=== PATIENT | male | born 1970 | race Two or more races ===

== ENCOUNTER 2018-12-09 21:26 | Inpatient (IN) | payer MEDICAID | END 2018-12-11 18:15 | disposition home or self-care (01) | LOC: OVERFLOW 12-10 06:03 → ER 21:26 → WEST WING 12-10 08:45 | DX: J18.9 Pneumonia, unspecified organism (principal); E11.65 Type 2 diabetes mellitus with hyperglycemia ==

== ENCOUNTER 2024-12-31 12:10 | Inpatient (IN) | payer MEDICAID ==
[~2024-12-31] VITALS: Ht 177.8 cm; Wt 92.0 kg
[~2024-12-31 12:10] MED LIST: METF-370 PO
[2024-12-31 12:32] LABS: Basophils # (auto) 0 10 ^3/uL (0-0.2); Basophils % (auto) 0.8 % (0.0-2.0); Eosinophils # (auto) 0.1 10 ^3/uL (0-0.8); Hemoglobin 14.2 g/dL (13.5-17.5); Lymphocytes % (auto) 31.4 % (10.0-50.0); Mean Corpuscular Hemoglobin 27.6 pg (28.0-32.0); Mean Corpuscular Hgb Conc. 33.7 g/dL (32.0-36.0); Mean Corpuscular Volume 81.8 fL (80.0-100.0); Monocytes # (auto) 0.7 10 ^3/uL (0-1.3); Monocytes % (auto) 10.3 % (0.0-12.0); Neutrophils # (auto) 3.5 10 ^3/uL (1.6-8.6); Neutrophils % (auto) 55.5 % (37.0-80.0); Nucleated Red Blood Cells % 0.2 %; Platelet Count (auto) 188 10^3/uL (140-450); Red Blood Cells 5.13 10^6/uL (4.5-5.90); Red Cell Distribution Width 14.9 % (11.8-14.3); White Blood Cell 6.3 10^3/uL (4.4-10.8)
--- NOTE | 2024-12-31 12:32 | ED.PDOC ---
HPI Comments HPI: 54-year-old male presents to the emergency department with a chief complaint of chest pain onset 1 day. Patient states he has been experiencing LT sided chest pain, radiates to RT side chest, described as an inflamed sensation, rates pain 9/10, is also experiencing shortness of breath. Patient took Nitro, had temporary relief of symptoms. He had coronary stents placed August 2024. Denies nausea, vomiting, diarrhea, headache, blurry vision, numbness/tingling. No other symptoms or modifying factors present at this time. Initial Vitals BP: 140/83 HR: 79 RR: 20 O2 Sat: 98% Past Medical history: DM, Past Surgical history: Coronary stent Medications: Metformin, Lopressor, Dexlansoprazole, Brilinta, Gabapentin, Gli pizide, Rosuvastatin, ASA, Metoprolol, Nitro, Lisinopril Social History: ETOH occasionally Allergies: NKDA HPI: Poor Historian. REVIEW OF SYSTEMS: CONSTITUTIONAL: Denies acute: fever, diaphoresis, chills, generalized weakness. HEAD: Denies acute: headache, photophobia Eyes: Denies acute: Double vision, vision loss, eye pain, eye discharge. EARS: Denies acute: tinnitus, hearing loss, ear discharge, ear pain, THROAT: Denies acute: sore throat, swelling, difficulty swallowing , pain with swallowing, change in voice. NECK: Denies acute: neck pain, neck swelling, stiff neck. HEART: Denies acute : palpitations, LUNGS: Denies acute: wheezing, cough, hemoptysis ABDOMEN: Denies acute: abdominal pain, Nausea, Vomiting, diarrhea, melena , hematemesis, hematochezia SKIN: Denies acute: rash, redness, lesions, itchiness. EXTREMITIES: Denies acute: calf pain, numbness, tingling, weakness, denies pain in extremity. Denies acute: Low back pain. Neuro: Denies acute: focal neurological deficit, motor or sensory focal neurological deficit, tremors, seizure like activity, confusion, dizziness, change in mental status, loss of bowel or bladder function, cauda equina like symptoms. : Denies acute: dysuria, hematuria, flank pain, increase in urinary frequency. PSYCH: Denies acute: hallucination, suicidal ideation, homicidal ideation. PHYSICAL EXAM: General: ----mild----acute distress, awake and alert. Head: normocephalic, atraumatic. Neck: supple, trachea is midline, no swelling. Throat: Normal phonation. Eyes:, no erythema, no purulent discharge, no proptosis, no icterus. Heart: regular rate, regular rhythm, no significant murmur appreciated. Lungs: no apparent respiratory distress, Able to speak in full sentences. No wheezing, no rhonchi, no crackles. No stridors Clear to auscultation bilaterally. Abdomen: non tender to palpation, non distended, soft, no guarding, no rebound, + bowel sounds. Neuro: Awake, Alert, oriented to name, self, situation, follows commands GCS=15. Speech is normal. Skin: no petechia, no purpura, no cyanosis, non-pale, not jaundice. Lower extremities: --no - Pitting edema no deformity, no focal swelling, no calf TTP. Makes eye contact. moves all four extremities. Face: no apparent facial droop. Ambulating in the ED independently. ED COURSE: DISCLAIMER: This medical document was created using an electronic medical record system with voice recognition software and computerized dictation system. Although this document has been carefully reviewed, there might still be some phonetic and typographical errors. Occasional wrong-word or "sound-alike" substitutions may have occurred due to the inherent limitations of voice recognition software. These areas are purely typographical due to imperfections of the software programs and do not reflect any compromise in the patient's medical care. Please read the chart carefully and recognize, using context, where these substitutions have occurred. Chief Complaint: Chest Pain Time Seen by MD: 12:20 Reviewed Notes: Medications, Allergies Allergies: Coded Allergies: NO KNOWN ALLERGIES (Unverified , 12/09/18) Home Meds Reported Medications Metformin Hydrochloride (Metformin Hcl) 500 Mg Tab, 500 MG PO DAILY for 30 Days, MG 12/10/18 Information Source: Patient Mode of Arrival: Ambulatory Severity: Moderate Timing: Days Duration: Since onset Prehospital treatment: Other (Nitro) Location: Chest (L) Radiation: No Radiation Quality: Other (inflammed) Onset: At Rest Cardiac Risk Factors: Diabetes Modifying Factors: Nothing Associated Signs and Symptoms: SOB Past Medical History PAST MEDICAL HISTORY: DM Surgical History: Denies all surgeries Surgical History (Other): coronary stents 08/2024 Family History Family History: Unknown Social History Smoker: Non-Smoker Alcohol: Occasionally Drugs: Denies Drug Use Lives In: Home Was a procedure done? Was a procedure done?: No CP Differential Dx Differential Diagnosis: N/A Differential Diagnosis: Other (Ddx include but not limitied to gastritis, musculoskeletal pain, radiculopathy, atypical chest pain, dissection, aneurysm, ACS, unstable angina, hiatal hernia, GERD, anxiety, costochondritis, PE, pneumothroax, neoplasm, cardiac ischemia, drug abuse, anemia.) X-Ray, Labs, Meds, VS Vital Signs Date Time Temp Pulse Resp B/P (MAP) Pulse Ox O2 Delivery O2 Flow Rate FiO2 12/31/24 19:30 97.5 75 20 147/94 (111) 98 97.5 12/31/24 17:17 97.4 75 18 142/93 (109) 98 97.4 12/31/24 16:09 88 19 97 Room Air* 0 21 12/31/24 14:13 88 19 114/76 (89) 97 12/31/24 13:54 80 17 125/77 (93) 96 12/31/24 13:48 82 17 124/78 (93) 99 12/31/24 13:46 124/78 12/31/24 13:27 120/73 12/31/24 13:13 73 12/31/24 12:56 84 18 98 Room Air 12/31/24 12:56 98.7 84 18 120/73 (89) 98 98.7 12/31/24 12:20 78 12/31/24 12:15 98.0 79 20 140/83 (102) 98 98.0 Lab Test 12/31/24 14:59 12/31/24 13:20 12/31/24 12:17 Range/Units Troponin I High Sensitivity 3 L < 3 L < 3 L </=54 ng/L White Blood Count 6.3 4.4-10.8 10^3/uL Red Blood Count 5.13 4.5-5.90 10^6/uL Hemoglobin 14.2 13.5-17.5 g/dL Hematocrit 42.0 41.0-53.0 % Mean Corpuscular Volume 81.8 80.0-100.0 fL Mean Corpuscular Hemoglobin 27.6 L 28.0-32.0 pg Mean Corpuscular Hemoglobin Concent 33.7 32.0-36.0 g/dL Red Cell Distribution Width 14.9 H 11.8-14.3 % Platelet Count 188 140-450 10^3/uL Mean Platelet Volume 7.1 6.9-10.8 fL Neutrophils (%) (Auto) 55.5 37.0-80.0 % Lymphocytes (%) (Auto) 31.4 10.0-50.0 % Monocytes (%) (Auto) 10.3 0.0-12.0 % Eosinophils (%) (Auto) 2.0 0.0-7.0 % Basophils (%) (Auto) 0.8 0.0-2.0 % Neutrophils # (Auto) 3.5 1.6-8.6 10 ^3/uL Lymphocytes # (Auto) 2.0 0.4-5.4 10 ^3/uL Monocytes # (Auto) 0.7 0-1.3 10 ^3/uL Eosinophils # (Auto) 0.1 0-0.8 10 ^3/uL Basophils # (Auto) 0 0-0.2 10 ^3/uL Nucleated Red Blood Cells 0.2 % Sodium Level 142 136-145 mmol/L Potassium Level 4.3 3.5-5.1 mmol/L Chloride Level 111 H 98-107 mmol/L Carbon Dioxide Level 20 20-31 mmol/L Anion Gap 11 5-15 Blood Urea Nitrogen 12 9-23 mg/dL Creatinine 0.83 0.700-1.30 mg/dL Glomerular Filtration Rate Calc 104 >90 mL/min BUN/Creatinine Ratio 14.5 10.0-20.0 Serum Glucose 143 H 74-106 mg/dL Calcium Level 10.1 8.7-10.4 mg/dL Total Bilirubin 0.4 0.2-1.0 mg/dL Aspartate Amino Transferase (AST) 11 <34 U/L Alanine Aminotransferase (ALT) 14 7-40 U/L Alkaline Phosphatase 62 46-116 U/L B-Type Natriuretic Peptide 44.60 0-100 pg/mL Total Protein 6.8 5.7-8.2 g/dL Albumin 4.2 3.2-4.8 g/dL Current Medications Medications (Trade) Dose Ordered Sig/Shad Route Start Time Stop Time Status Last Admin Aspirin (Ecotrin Enteric Coated Tablet) 325 mg ONCE ONCE PO 12/31/24 12:30 12/31/24 12:31 DC 12/31/24 13:26 Nitroglycerin (Ntrostat Sublingual) 0.4 mg ONCE ONCE SL 12/31/24 12:30 12/31/24 12:31 DC 12/31/24 13:27 [place] [id number] Ph: [phone] DIAGNOSTIC IMAGING Diagnostic Imaging Report : [id number] Signed PATIENT: LORE ZHANG ACCT: [id number] UNIT: [id number] : 1970 LOC: ER ROOM / BED: / AGE / SEX: 54 / M ADM STATUS: REG ER SERVICE 1216 ORDERING PHYSICIAN: JOCELIN COSBY DO PROCEDURE(s): CXRP - CHEST PORTABLE REASON: cp/sob ORDER NUMBER(s): [id number], ACCESSION NUMBER(s): [id number] CHEST RADIOGRAPH Indication: cp/sob Technique: Single frontal view of the chest was obtained Comparison: None FINDINGS: Lines and Tubes: None Lungs: No focal consolidation. Pleura: No effusion. No pneumothorax. Cardiomediastinal contours: Unremarkable Bones: No acute osseous abnormality. IMPRESSION: No acute cardiopulmonary disease. ATED BY: BÁRBARA DUBON DO DICTATED DATE/TIME: 12/31/241313 SIGNED BY: BÁRBARA DUBON DO SIGNED DATE/TIME: 12/31/244 CC: Time of 1ST Reevaluation: 12:50 Reevaluation 1ST: Unchanged Patient Education/Counseling: Diagnosis, Treatment Family Education/Counseling: No Family Present Comments Patient presented with the above HPI.-cardiac-----workup was initiated. patient was found with the above mentioned diagnosis. the following medications were ordered: please refer to order lists of meds and tests obtained by myself Dr. Cosby. Patient ED course and VS have been stabilized. Patient has been reassessed in the ED and remained in a stable condition. Pertinent incidental findings were discussed with the patient and/or family. Patient/family voices understanding and is agreeable with plan. Patient has been observed in the ED adequate length of time to insure improvement/stability. Escalation of care considered: Consideration of escalation to observation or admission Patient was ADMITTED to the medicine team for further evaluation and treatment of their presentation. All the reports of any imaging studies that were ordered by myself were reviewed by myself. Departure 1 Departure Time of Disposition: 16:00 Impression: Primary Impression: Chest pain Disposition: ADMITTED INPATIENT Admit to: Tele Condition: Guarded Discharged With: Self Critical Care Note Critical Care Time?: No Heart Score Heart Score: Heart Score Response (Comments) Value History Moderate Suspicious 1 EKG Normal 0 Age 45-64 1 Risk Factors >3 or Hx ASHD 2 Troponin Normal limit 0 Total 4 I personally scribed for JOCELIN COSBY DO ([email or web address]) on 12/31/24 at 12:32. Electronically submitted by Sheba Garcia ([email or web address]). I personally scribed for JOCELIN COSBY DO ([email or web address]) on 12/31/24 at 13:30. Electronically submitted by Sheba Garcia ([email or web address]). JOCELIN COSBY DO Dec 31, 2024 12:32
[2024-12-31 12:51] LABS: Alanine Aminotransferase 14 U/L (7-40); Albumin 4.2 g/dL (3.2-4.8); Alkaline Phosphatase 62 U/L (46-116); Anion Gap 11 (5-15); Aspartate Aminotransferase 11 U/L (<34); BUN/Creatinine Ratio 14.5 (10.0-20.0); Bilirubin, Total 0.4 mg/dL (0.2-1.0); Blood Urea Nitrogen 12 mg/dL (9-23); Calcium 10.1 mg/dL (8.7-10.4); Carbon Dioxide 20 mmol/L (20-31); Chloride 111 mmol/L (98-107); Glucose 143 mg/dL (74-106); Potassium 4.3 mmol/L (3.5-5.1); Sodium 142 mmol/L (136-145); Total Protein 6.8 g/dL (5.7-8.2)
--- NOTE | 2024-12-31 13:17 | DVH ---
CHEST RADIOGRAPH Indication: cp/sob Technique: Single frontal view of the chest was obtained Comparison: None FINDINGS: Lines and Tubes: None Lungs: No focal consolidation. Pleura: No effusion. No pneumothorax. Cardiomediastinal contours: Unremarkable Bones: No acute osseous abnormality. IMPRESSION: No acute cardiopulmonary disease.
[2024-12-31] MEDS: ASPirin-EC 325mg tab PO ONE (13:26)
[2024-12-31] MEDS: NITROGLYCERIN 0.4 MG SL TAB SL ONE (13:27)
[2024-12-31 16:09] VITALS: PULSE 88; RESP 19; O2SAT 97
--- NOTE | 2024-12-31 19:17 | ECG ---
[facility] Test Date: 2024-12-31 Test Time: 13:13:15 Pat Name: LORE ZHANG Department: ED Room: Gender: M Assurance Manager: driss : 1970 Requested By: JOCELIN COSBY Order Number: [id number] Reading MD: Homero Greer Measurements Intervals [place] Rate: 73 P: 69 MN: 146 QRS: 48 QRSD: 85 T: 71 QT: 386 QTc: 426 Interpretive Statements Sinus rhythm RSR' in V1 or V2, probably normal variant ST elev, probable normal early repol pattern Electronically Signed On 12-31-2024 21:19:56 PDT by Homero Greer Please click the below link to view image of tracing.
[2024-12-31] MEDS ORDERED: HYDROcodone-ACET 5/325MG TAB PO PRN (21:30)
[2024-12-31] MEDS ORDERED: ONDANSETRON HCL 4 MG/2 ML VIAL IV PRN (21:30)
[2024-12-31] MEDS ORDERED: ACETAMINOPHEN 325 MG TAB PO PRN (21:30)
[2024-12-31] MEDS ORDERED: DOCUSATE SOD 100 MG CAP PO PRN (21:30)
[2024-12-31] MEDS ORDERED: DEXTROSE (50%) 50ML SYRG IV PRN (21:30)
[2024-12-31] MEDS: ATORVASTATIN 20 MG TAB PO SCH (22:40)
[2024-12-31] MEDS: SODIUM CHLOR 0.9% PF (SALINE LOCK) 10ML VIAL/SYR IV SCH (22:40)
[2024-12-31] MEDS: GABAPENTIN 100 MG CAP PO SCH (22:40)
[2024-12-31] MEDS: METOPROLOL TARTRATE 25 MG TAB PO SCH (22:40)
[2024-12-31] MEDS: ACCU-CHEK COMFORT CURVE STRIP VI SCH (22:41)
[2024-12-31] MEDS: InsuLIN REG 1unit/0.01ml Soln (100units/ml) SC SCH (22:52)
--- NOTE | 2024-12-31 23:24 | DVHHP2 ---
History of Present Illness Reason for Visit: Acute chest pain History of Present Illness The patient is a 54-year-old male with past medical history of diabetes mellitus, hyperlipidemia, and hypertension who presented to [facility] ED with complaint of chest pain for the past 1 day. Patient reports symptoms progressively get worse with left-sided chest pain, radiating to the right side of the chest, described as inflamed sensation, rating 9/10 numeric scale, associated shortness of breaths, getting worse today that prompted this visit. Patient was seen and evaluated in the ED, laboratory data shows WBC 6.3, platelets 188, sodium 142, potassium 4.3, BUN 12, creatinine 0.83, glucose 143, troponin 3, BNP 44.60, blood pressure 147/94, heart rate 75, temperature 97.6 F, O2 saturation 98% on room air. Chest x-ray show no acute cardiopulmonary disease. Please see medication orders section in the computer. On my assessment, patient denied chest pain at this moment, no headache, no dizziness, no diaphoresis, no shortness of breaths, no nausea, no vomiting, no fever, no chill s. Patient was admitted for further evaluation and medical management. Past Medical History DM, HLD, Hypertension Past Surgical History Coronary stent Family History Reviewed, noncontributory to the management of this case. Past Social History The patient lives at home, denies smoking, alcohol or illicit drugs abuse. Review of Systems Constitutional: Yes: Weakness; No: Fever, Chills, Sweats, Malaise, Other Eyes: No: Pain, Vision change, Conjunctivae inflammation, Eyelid inflammation, Other, Redness ENT: No: Ear pain, Ear discharge, Nose pain, Nose discharge, Nose congestion, Mouth pain, Mouth swelling, Throat pain, Throat swelling, Other Respiratory: Shortness of breath; No: Cough, Dry, SOB with excertion, Wheezing, Hemoptysis, Pleuritic Pain, Sputum, Wheezing, Other Cardiovascular: Chest Pain; No: Palpitations, Orthopnea, Paroxysmal Noc. Dyspnea, Edema, Lt Headedness, Other Gastrointestinal: No: Nausea, Vomiting, Abdominal Pain, Diarrhea, Constipation, Melena, Hematochezia, Other Genitourinary: No Dysuria, No Frequency, No Incontinence, No Hematuria, No Retention, No Other Musculoskeletal: No: other, neck pain, shoulder pain, arm pain, back pain, hand pain, leg pain, foot pain Skin: No: Rash, Lesions, Jaundice, Bruising, Other Neurological: No: Weakness, Numbness, Incoordination, Change in speech, Co nfusion, Seizures, Other Allergies: Coded Allergies: NO KNOWN ALLERGIES (Unverified , 12/09/18) Medications Current Medications Medications Dose Ordered Sig/Shad Route Start Time Stop Time Status Last Admin Dose Admin Aspirin 81 mg DAILY PO 01/01/25 10:00 Atorvastatin Calcium 20 mg HS PO 12/31/24 22:00 12/31/24 22:40 20 MG Gabapentin 100 mg BID PO 12/31/24 22:00 12/31/24 22:40 100 MG Metoprolol Tartrate 25 mg BID PO 12/31/24 22:00 12/31/24 22:40 25 MG Hydralazine HCl 10 mg Q6HP PRN IV 12/31/24 21:30 Diagnostic Test (Pha) 1 strip ACHS 12/31/24 22:00 12/31/24 22:41 1 STRIP Insulin Human Regular ACHS SC 12/31/24 22:00 12/31/24 22:52 3 UNITS Dextrose 50 ml UD PRN IV 12/31/24 21:30 Sodium Chloride 10 ml Q8HR IV 12/31/24 22:00 12/31/24 22:40 10 ML Acetaminophen/ Hydrocodone Bitart 1 tab Q4HP PRN PO 12/31/24 21:30 Ondansetron HCl 4 mg Q4HP PRN IV 12/31/24 21:30 Docusate Sodium 100 mg BIDPRN PRN PO 12/31/24 21:30 Acetaminophen 650 mg Q6HP PRN PO 12/31/24 21:30 Exam Vital Signs Vital Signs Date Time Temp Pulse Resp B/P (MAP) Pulse Ox O2 Delivery O2 Flow Rate FiO2 12/31/24 22:40 83 149/87 12/31/24 22:30 97.5 18 99 97.5 12/31/24 16:09 Room Air* 0 21 General Appearance: Alert, Oriented X3, Cooperative, No acute distress HEENT: Atraumatic, PERRLA, EOMI, Mucous membr. moist/pink Respiratory: Clear to auscultation, Normal air movement Cardiovascular: Regular rate, Normal S1, Normal S2, No murmurs Abdominal: Normal bowel sounds, Soft, No tenderness, No hepatospenomegaly, No masses Extremities: No clubbing, No cyanosis, No edema, Normal pulses, No tenderness/swelling Skin: No rashes, No breakdown, No significant lesion Neuro: Normal gait, Normal speech, Strength at 5/5 X4 ext, Normal tone, Sensation intact, Cranial nerves 3-12 NL, Reflexes 2+ Psych/Mental Status: Mental status NL, Mood NL Labs/Xrays Labs Test 12/31/24 14:59 12/31/24 12:17 Range/Units Troponin I High Sensitivity 3 L </=54 ng/L White Blood Count 6.3 4.4-10.8 10^3/uL Red Blood Count 5.13 4.5-5.90 10^6/uL Hemoglobin 14.2 13.5-17.5 g/dL Hematocrit 42.0 41.0-53.0 % Mean Corpuscular Volume 81.8 80.0-100.0 fL Mean Corpuscular Hemoglobin 27.6 L 28.0-32.0 pg Mean Corpuscular Hemoglobin Concent 33.7 32.0-36.0 g/dL Red Cell Distribution Width 14.9 H 11.8-14.3 % Platelet Count 188 140-450 10^3/uL Mean Platelet Volume 7.1 6.9-10.8 fL Neutrophils (%) (Auto) 55.5 37.0-80.0 % Lymphocytes (%) (Auto) 31.4 10.0-50.0 % Monocytes (%) (Auto) 10.3 0.0-12.0 % Eosinophils (%) (Auto) 2.0 0.0-7.0 % Basophils (%) (Auto) 0.8 0.0-2.0 % Neutrophils # (Auto) 3.5 1.6-8.6 10 ^3/uL Lymphocytes # (Auto) 2.0 0.4-5.4 10 ^3/uL Monocytes # (Auto) 0.7 0-1.3 10 ^3/uL Eosinophils # (Auto) 0.1 0-0.8 10 ^3/uL Basophils # (Auto) 0 0-0.2 10 ^3/uL Nucleated Red Blood Cells 0.2 % Sodium Level 142 136-145 mmol/L Potassium Level 4.3 3.5-5.1 mmol/L Chloride Level 111 H 98-107 mmol/L Carbon Dioxide Level 20 20-31 mmol/L Anion Gap 11 5-15 Blood Urea Nitrogen 12 9-23 mg/dL Creatinine 0.83 0.700-1.30 mg/dL Glomerular Filtration Rate Calc 104 >90 mL/min BUN/Creatinine Ratio 14.5 10.0-20.0 Serum Glucose 143 H 74-106 mg/dL Calcium Level 10.1 8.7-10.4 mg/dL Total Bilirubin 0.4 0.2-1.0 mg/dL Aspartate Amino Transferase (AST) 11 <34 U/L Alanine Aminotransferase (ALT) 14 7-40 U/L Alkaline Phosphatase 62 46-116 U/L B-Type Natriuretic Peptide 44.60 0-100 pg/mL Total Protein 6.8 5.7-8.2 g/dL Albumin 4.2 3.2-4.8 g/dL PATIENT: LORE ZHANG ACCT: [id number] UNIT: [id number] : 1970 LOC: ER ROOM / BED: / AGE / SEX: 54 / M ADM STATUS: REG ER SERVICE 1216 ORDERING PHYSICIAN: JOCELIN COSBY DO PROCEDURE(s): CXRP - CHEST PORTABLE REASON: cp/sob ORDER NUMBER(s): [id number], ACCESSION NUMBER(s): [id number] CHEST RADIOGRAPH Indication: cp/sob Technique: Single frontal view of the chest was obtained Comparison: None FINDINGS: Lines and Tubes: None Lungs: No focal consolidation. Pleura: No effusion. No pneumothorax. Cardiomediastinal contours: Unremarkable Bones: No acute osseous abnormality. IMPRESSION: No acute cardiopulmonary disease. Assessment/Plan Assessment/Plan Acute chest pain Hypertension Diabetes mellitus with hyperglycemia Plan 1. Admit to telemetry unit 2. Breathing treatment 3. Pain control management 4. Management of fluids and electrolytes 5. Consultation for hospitalist 6. Diagnostic tests chest x-ray 7. DVT prophylaxis-on aspirin 8. Repeat labs CBC, CMP in a.m. 9. Continue with current medical management 10. Treatment plan discussed with patient and RN. Patient verbalized understanding. Plan discussed with: Patient, Other (RN) My Orders Orders - LORI COLEMAN DNP Procedure Category Date Status Time Aspirin Tablet PHA 01/01/25 In Process 10:00 Atorvastatin (Lipitor) PHA 12/31/24 In Process 22:00 Gabapentin Capsule PHA 12/31/24 In Process (Neurontin Capsule) 22:00 Metoprolol Tartrate PHA 12/31/24 In Process Tablet (Lopressor Ta 22:00 Hydralazine Injection PHA 12/31/24 In Process (Apresoline Inject 21:30 Consistent DIET 01/01/25 Transmitted Carb(Ccho)Diabetes Breakfast Glucose Blood PHA 12/31/24 In Process (Accu-Chek Comfort 22:00 Insulin R (Human) PHA 12/31/24 In Process (Insulin R) 22:00 Dextrose 50% Syringe PHA 12/31/24 In Process 21:30 Allergies NOEMI 12/31/24 In Process 21:22 Code Status CODE 12/31/24 Transmitted 21:22 Sodium Chloride Lock PHA 12/31/24 In Process (Saline Lock Ns) 22:00 Oxygen Per Hour RT 12/31/24 Transmitted 21:22 Hydrocodone-Acet PHA 12/31/24 In Process 5/325mg Tab ([place] 21:30 Ondansetron Hcl PHA 12/31/24 In Process (Zofran) 21:30 Docusate Sodium PHA 12/31/24 In Process Capsule (Colace 21:30 Complete Blood Count LAB 01/01/25 Verified 04:00 Comprehensive LAB 01/01/25 Verified Metabolic Panel 04:00 Condition: Serious NOEMI 12/31/24 In Process 21:22 Acetaminophen Tablet PHA 12/31/24 In Process (Tylenol Tablet) 21:30 Bedrest With Bathroom NOEMI 12/31/24 In Process Privileg 21:22 Sequential NOEMI 12/31/24 In Process Compression Device Problem List: (1) Acute chest pain (2) Hypertension (3) Diabetes mellitus with hyperglycemia Date of Service: Dec 31, 2024 Billing Provider: LORI COLEMAN DNP Common Visit Codes: [id number] INP/OBS CARE (HIGH) LORI COLEMAN DNP Dec 31, 2024 23:24
[2024-12-31] MEDS ORDERED: MORPHINE SULFATE INJ 2 MG/ml SYRG IV PRN (23:30)
[2024-12-31] MEDS ORDERED: NITROGLYCERIN 0.4 MG SL TAB SL PRN (23:30)
[2025-01-01] VITALS (8 sets, daily range): BP systolic 119–148; BP diastolic 74–94; PULSE 65–73; RESP 15–18; TEMP 97.6–98.2; O2SAT 95–97
[2025-01-01 07:30] LABS: Basophils # (auto) 0 10 ^3/uL (0-0.2); Basophils % (auto) 0.6 % (0.0-2.0); Eosinophils # (auto) 0.2 10 ^3/uL (0-0.8); Eosinophils % (auto) 3.2 % (0.0-7.0); Hematocrit 40.3 % (41.0-53.0); Lymphocytes # (auto) 2.1 10 ^3/uL (0.4-5.4); Lymphocytes % (auto) 31.9 % (10.0-50.0); Mean Corpuscular Hgb Conc. 34.6 g/dL (32.0-36.0); Mean Corpuscular Volume 80.8 fL (80.0-100.0); Monocytes # (auto) 0.7 10 ^3/uL (0-1.3); Neutrophils # (auto) 3.5 10 ^3/uL (1.6-8.6); Neutrophils % (auto) 53.3 % (37.0-80.0); Nucleated Red Blood Cells % 0.1 %; Platelet Count (auto) 179 10^3/uL (140-450); Red Blood Cells 4.99 10^6/uL (4.5-5.90); Red Cell Distribution Width 14.9 % (11.8-14.3); White Blood Cell 6.5 10^3/uL (4.4-10.8)
[2025-01-01 07:37] LABS: Alanine Aminotransferase 13 U/L (7-40); Alkaline Phosphatase 59 U/L (46-116); Anion Gap 10 (5-15); Aspartate Aminotransferase 13 U/L (<34); BUN/Creatinine Ratio 14.6 (10.0-20.0); Blood Urea Nitrogen 12 mg/dL (9-23); Calcium 9.7 mg/dL (8.7-10.4); Carbon Dioxide 22 mmol/L (20-31); Potassium 4.1 mmol/L (3.5-5.1); Sodium 142 mmol/L (136-145); Total Protein 6.4 g/dL (5.7-8.2)
[2025-01-01 07:38] LABS: Albumin 3.9 g/dL (3.2-4.8); Bilirubin, Total 0.6 mg/dL (0.2-1.0)
[2025-01-01 07:51] LABS: Chloride 110 mmol/L (98-107); Glucose 111 mg/dL (74-106)
[2025-01-01] MEDS: ASPirin 81 mg TAB PO SCH (09:23)
[2025-01-01] MEDS ORDERED: TICA90TA PO (17:52)
[2025-01-01] MEDS: SODIUM CHLORIDE 0.9% 1,000 ML IV SCH (18:00)
--- NOTE | 2025-01-01 18:02 | DVHINCON2 ---
Date Seen: Jan 01, [address] Wylie Reason for Consultation Chest pain History of Present Illness The patient is a 54-year-old male with a significant history of coronary artery disease, status post placement of a total of seven coronary stents, two placed by Dr. Jed Keller and five placed in August 2024, who presents to the emergency department with complaint of chest pain ongoing for the past day. He reports that the chest pain has persisted despite of being compliant with his prescribed med the regimen, which includes dual antiplatelet therapy and statin therapy. He denies associated symptoms such as shortness of breath, palpitations, syncope, nausea, or vomiting. Given his high-risk cardiac history, he was evaluated with serial troponins which returned negative. A 12 lead ECG showed sinus rhythm with nonspecific ST elevations, likely representing early repolarization. Chest x-ray was unremarkable showing no acute cardiorenal pulmonary process. Past Medical History As stated in hpi Past Surgical History PTCA Family History: Diabetes mellitus G8 MOTHER G8 FATHER Family History Reviewed, non-contributory to the management of this case. Social History The patient lives at home, denies smoking, alcohol or illicit drugs abuse. Allergies: Coded Allergies: NO KNOWN ALLERGIES (Unverified , 12/09/18) Home Meds Reported Medications Ticagrelor Base (BRILINTA) 90 Mg Tab, 1 TAB PO BID 01/01/25 Metformin Hydrochloride (Metformin Hcl) 500 Mg Tab, 500 MG PO DAILY for 30 Days, MG 12/10/18 Current Medications Current Medications Medications (Trade) Dose Ordered Sig/Shad Route PRN Reason Start Time Stop Time Status Last Admin Aspirin 81 mg DAILY PO 01/01/25 10:00 01/01/25 09:23 Atorvastatin Calcium (Lipitor) 20 mg HS PO 12/31/24 22:00 12/31/24 22:40 Gabapentin (Neurontin Capsule) 100 mg BID PO 12/31/24 22:00 01/01/25 09:22 Metoprolol Tartrate (Lopressor Tablet) 25 mg BID PO 12/31/24 22:00 01/01/25 09:23 Hydralazine HCl (Apresoline Injection) 10 mg Q6HP PRN IV SBP>150 12/31/24 21:30 Diagnostic Test (Pha) (Accu-Chek Comfort Curve T) 1 strip ACHS 12/31/24 22:00 01/01/25 16:24 Insulin Human Regular (InsuLIN R) ACHS SC 12/31/24 22:00 01/01/25 11:57 Dextrose 50 ml UD PRN IV Blood Sugar LESS THAN 60 12/31/24 21:30 Sodium Chloride (Saline Lock Ns) 10 ml Q8HR IV 12/31/24 22:00 01/01/25 13:21 Acetaminophen/ Hydrocodone Bitart ([place] 5/325MG Tab) 1 tab Q4HP PRN PO MODERATE PAIN (4-6 PAIN SCALE) 12/31/24 21:30 Ondansetron HCl (Zofran) 4 mg Q4HP PRN IV NAUSEA / VOMITING 12/31/24 21:30 Docusate Sodium (Colace Capsule) 100 mg BIDPRN PRN PO FOR CONSTIPATION 12/31/24 21:30 Acetaminophen (Tylenol Tablet) 650 mg Q6HP PRN PO PAIN SCALE 1-3 OR TEMP>100.4 12/31/24 21:30 Nitroglycerin (Ntrostat Sublingual) 0.4 mg Q5MINP PRN SL FOR CHEST PAIN 12/31/24 23:30 Morphine Sulfate 2 mg Q30M PRN IV FOR CHEST PAIN 12/31/24 23:30 Review of Systems Constitutional: No symptom reported Ears, Nose, & Throat: No symptom reported Eyes: No symptom reported Neurological: No symptoms reported Pulmonary/Respiratory: No symptom reported Cardiovascular: Positive for chest pain, denies palpitation, syncope Gastrointestinal: No symptom reported Genitourinary: No symptom reported Musculoskeletal: No symptom reported Skin: No symptom reported Psychiatric: No symptom reported Endocrine: No symptom reported Hemotologic/Lymphatic: No symptom reported Vital Signs Vital Signs Date Time Temp Pulse Resp B/P (MAP) Pulse Ox O2 Delivery O2 Flow Rate FiO2 01/01/25 17:19 98.0 65 17 148/94 (112) 96 98.0 01/01/25 01:30 Room Air* 0 21 Physical Exam INITIAL VITAL SIGNS: Reviewed by me GENERAL: Alert and interactive. No acute distress. HEAD: Head is normocephalic and atraumatic. EYES: EOMI, PERRL. No scleral icterus. No conjunctival injection. ENT: Moist mucous membranes. NECK: Supple, No masses, Full range of motion. RESPIRATORY: No tachypnea. Clear breath sounds bilaterally. No wheezing, ral es, rhonchi. CV: Regular rate and rhythm. No murmurs, rubs, or gallops. GI/: Active bowel sounds, soft, nondistended, nontender. No guarding. No rebound. No masses. No CVA tenderness. INTEGUMENTARY: Warm and dry. No obvious rashes. NEUROLOGIC: Alert and oriented. Face is symmetric. Speech is normal. Moves all extremities equally. Labs/Diagnostic Data Labs Test 01/01/25 16:06 01/01/25 06:52 12/31/24 14:59 12/31/24 12:17 Range/Units POC Glucose 165 H 70-106 mg/dl White Blood Count 6.5 4.4-10.8 10^3/uL Red Blood Count 4.99 4.5-5.90 10^6/uL Hemoglobin 14.0 13.5-17.5 g/dL Hematocrit 40.3 L 41.0-53.0 % Mean Corpuscular Volume 80.8 80.0-100.0 fL Mean Corpuscular Hemoglobin 28.0 28.0-32.0 pg Mean Corpuscular Hemoglobin Concent 34.6 32.0-36.0 g/dL Red Cell Distribution Width 14.9 H 11.8-14.3 % Platelet Count 179 140-450 10^3/uL Mean Platelet Volume 7.3 6.9-10.8 fL Neutrophils (%) (Auto) 53.3 37.0-80.0 % Lymphocytes (%) (Auto) 31.9 10.0-50.0 % Monocytes (%) (Auto) 11.0 0.0-12.0 % Eosinophils (%) (Auto) 3.2 0.0-7.0 % Basophils (%) (Auto) 0.6 0.0-2.0 % Neutrophils # (Auto) 3.5 1.6-8.6 10 ^3/uL Lymphocytes # (Auto) 2.1 0.4-5.4 10 ^3/uL Monocytes # (Auto) 0.7 0-1.3 10 ^3/uL Eosinophils # (Auto) 0.2 0-0.8 10 ^3/uL Basophils # (Auto) 0 0-0.2 10 ^3/uL Nucleated Red Blood Cells 0.1 % Sodium Level 142 136-145 mmol/L Potassium Level 4.1 3.5-5.1 mmol/L Chloride Level 110 H 98-107 mmol/L Carbon Dioxide Level 22 20-31 mmol/L Anion Gap 10 5-15 Blood Urea Nitrogen 12 9-23 mg/dL Creatinine 0.82 0.700-1.30 mg/dL Glomerular Filtration Rate Calc 104 >90 mL/min BUN/Creatinine Ratio 14.6 10.0-20.0 Serum Glucose 111 H 74-106 mg/dL Calcium Level 9.7 8.7-10.4 mg/dL Total Bilirubin 0.6 0.2-1.0 mg/dL Aspartate Amino Transferase (AST) 13 <34 U/L Alanine Aminotransferase (ALT) 13 7-40 U/L Alkaline Phosphatase 59 46-116 U/L Total Protein 6.4 5.7-8.2 g/dL Albumin 3.9 3.2-4.8 g/dL Troponin I High Sensitivity 3 L </=54 ng/L B-Type Natriuretic Peptide 44.60 0-100 pg/mL PROCEDURE(s): CXRP - CHEST PORTABLE REASON: cp/sob ORDER NUMBER(s): [id number], ACCESSION NUMBER(s): [id number] CHEST RADIOGRAPH Indication: cp/sob Technique: Single frontal view of the chest was obtained Comparison: None FINDINGS: Lines and Tubes: None Lungs: No focal consolidation. Pleura: No effusion. No pneumothorax. Cardiomediastinal contours: Unremarkable Bones: No acute osseous abnormality. IMPRESSION: No acute cardiopulmonary disease. Assessment Acute chest pain Rule out progressive CAD s/p PTCA x 7 stents Diabetes type 2 Plan/Recommendation (Dr. Keller ): Given the patient's extensive cardiac history and persistent chest pain despite medical therapy, he is scheduled to undergo a left heart catheterization on Friday, 2024, for further evaluation. The procedure, including its purpose and potential risk was discussed in detail with the patient and his spouse, both of whom verbalized understanding and agreement with the plan. In the interim, the patient will continue on dual antiplatelet therapy and statins, with close cardiac monitoring and surveillance This medical document was created using an electronic medical record system with voice recognition software and computerized dictation system. Although this doc ument has been carefully reviewed, there might still be some phonetic and typographical errors. Occasional wrong-word or ``sound-alike substitutions may have occurred due to the inherent limitations of voice recognition software. These areas are purely typographical due to imperfections of the software programs and do not reflect any compromise in the patient's medical care. Katie tovar read the chart carefully and recognize, using context, where these substitutions have occurred. Plan discussed with: Patient Plan discussed with: Patient, Spouse NYHA Physical activity limitations: NA Date of Service: Jan 01, 2025 Billing Provider: SHAHEED KELLER MD Cardiology Common Codes: CONSULT ONLY Cardiology Consultation Codes: [id number] CONSULT <60MIN VI MATOS STAMPING MACHINE OPERATOR Jan 01, 2025 18:02
--- NOTE | 2025-01-01 19:12 | DVHPN2 ---
Subjective I am assuming the care of the patient from today onwards who was under the care of the hospitalist team. Patient is currently denies any chest pain. Reviewed: Care Plan Changes from previous H/P or p: No Changes Eyes: No Pain, No Vision change, No Conjunctivae inflammation, No Eyelid inflammation, No Other, No Redness ENT: No Ear pain, No Ear discharge, No Nose pain, No Nose discharge, No Nose congestion, No Mouth pain, No Mouth swelling, No Throat pain, No Throat swelling, No Other Cardiovascular: Chest Pain; No Palpitations, No Orthopnea, No Paroxysmal Noc. Dyspnea, No Edema, No Lt Headedness, No Other Respiratory: No Cough, No Dry; Shortness of breath; No SOB with excertion, No Wheezing, No Hemoptysis, No Pleuritic Pain, No Sputum, No Other Gastrointestinal: No Nausea, No Vomiting, No Abdominal Pain, No Diarrhea, No Constipation, No Melena, No Hematochezia, No Other Genitourinary: No Dysuria, No Frequency, No Incontinence, No Hematuria, No Retention, No Other Musculoskeletal: No other, No neck pain, No shoulder pain, No arm pain, No back pain, No hand pain, No leg pain, No foot pain Skin: No Rash, No Lesions, No Jaundice, No Bruising, No Other Objective Vitals Vital Signs Date Time Temp Pulse Resp B/P (MAP) Pulse Ox O2 Delivery O2 Flow Rate FiO2 01/01/25 17:19 98.0 65 17 148/94 (112) 96 98.0 01/01/25 01:30 Room Air* 0 21 Intake/Output Intake and Output 01/01/25 07:00 # Voids 3 Exam HEENT pupils are reactive Neck is supple CVS S1-S2 regular rate and rhythm Respiratory are clear GI positive bowel sound Extremity no edema 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 Medications Current Medications Medications Dose Ordered Sig/Shad Route Start Time Stop Time Status Last Admin Dose Admin Aspirin 81 mg DAILY PO 01/01/25 10:00 01/01/25 09:23 81 MG Atorvastatin Calcium 20 mg HS PO 12/31/24 22:00 12/31/24 22:40 20 MG Gabapentin 100 mg BID PO 12/31/24 22:00 01/01/25 09:22 100 MG Metoprolol Tartrate 25 mg BID PO 12/31/24 22:00 01/01/25 09:23 25 MG Hydralazine HCl 10 mg Q6HP PRN IV 12/31/24 21:30 Diagnostic Test (Pha) 1 strip ACHS 12/31/24 22:00 01/01/25 16:24 1 STRIP Insulin Human Regular ACHS SC 12/31/24 22:00 01/01/25 11:57 3 UNITS Dextrose 50 ml UD PRN IV 12/31/24 21:30 Sodium Chloride 10 ml Q8HR IV 12/31/24 22:00 01/01/25 13:21 10 ML Acetaminophen/ Hydrocodone Bitart 1 tab Q4HP PRN PO 12/31/24 21:30 Ondansetron HCl 4 mg Q4HP PRN IV 12/31/24 21:30 Docusate Sodium 100 mg BIDPRN PRN PO 12/31/24 21:30 Acetaminophen 650 mg Q6HP PRN PO 12/31/24 21:30 Nitroglycerin 0.4 mg Q5MINP PRN SL 12/31/24 23:30 Morphine Sulfate 2 mg Q30M PRN IV 12/31/24 23:30 Ticagrelor 90 mg BID PO 01/01/25 22:00 Sodium Chloride 1,000 ml @ 75 mls/hr [id number] IV 01/01/25 18:00 Laboratory Results Laboratory Tests 01/01/25 06:52 Chemistry Test 01/01/25 06:52 Albumin 3.9 g/dL (3.2-4.8) Calcium Level 9.7 mg/dL (8.7-10.4) Total Protein 6.4 g/dL (5.7-8.2) Coagulation Test 01/01/25 18:39 Prothrombin Time Pending Prothrombin Time INR Pending Activated Partial Thromboplast Time Pending LFT Test 01/01/25 06:52 Alanine Aminotransferase (ALT) 13 U/L (7-40) Alkaline Phosphatase 59 U/L (46-116) Aspartate Amino Transferase (AST) 13 U/L (<34) Total Bilirubin 0.6 mg/dL (0.2-1.0) Assessment/Plan Assessment/Plan 54-year-old male with a known history of hypertension, diabetes type 2, known coronary artery disease status post PCI with seven stents, lung facial mass status post biopsy at [facility] in the past presented to the hospital with shortness of breaths has a chest pain found to have 1. Chest pain rule out GA 2. Known coronary artery disease status post multiple stents 3. Hypertension 4. Diabetes mellitus type 2 5. History of lung facial mass status post biopsy in the past -left heart catheterization on next Friday. Continue current medication, pulmonary consultation. Plan discussed with: Patient, Spouse My Orders Orders - EMMETT RODRIGUEZ MD Procedure Category Date Status Time * Cardiology Consult CONS 01/01/25 Transmitted 15:47 *Consult CONS 01/01/25 Transmitted / 19:09 Date of Service: Jan 01, 2025 Billing Provider: EMMETT RODRIGUEZ MD Common Visit Codes: [id number] INP/OBS CARE(MOD) EMMETT RODRIGUEZ MD Jan 01, 2025 19:12
[2025-01-01 19:20] LABS: Partial Thromboplastin Time 27.4 SEC (24.5-34.5); Prothrombin Time 10.6 sec (9.3-11.8)
[2025-01-01] MEDS: TICAGRELOR 90 MG TAB PO SCH (21:26)
--- NOTE | 2025-01-01 23:26 | DVHINCON2 ---
Date Seen: Jan 01, [address] Wylie Reason for Consultation Chest pain History of Present Illness This is a 54-year-old male with a past medical history of coronary artery disease, status post placement of a total of seven coronary stents, two placed by me and five placed in August 2024, who presents to the emergency department with a complaint of chest pain ongoing for the past day. Patient reports that the chest pain has persisted despite of being compliant with his prescribed med the regimen, which includes dual antiplatelet therapy and statin therapy. He denies associated symptoms such as shortness of breath, palpitations, syncope, nausea, or vomiting. Given his high-risk cardiac history, he was evaluated with serial troponins which returned negative. A 12 lead ECG showed sinus rhythm with nonspecific ST elevations, likely representing early repolarization. Chest x-ray was unremarkable showing no acute cardiorenal pulmonary process. Patient was admitted to the hospital. I am asked to consult on this patient. Past Medical History As stated in hpi Past Surgical History PTCA Family History: Diabetes mellitus G8 MOTHER G8 FATHER Allergies: Coded Allergies: NO KNOWN ALLERGIES (Unverified , 12/09/18) Home Meds Reported Medications Ticagrelor Base (BRILINTA) 90 Mg Tab, 1 TAB PO BID 01/01/25 Metformin Hydrochloride (Metformin Hcl) 500 Mg Tab, 500 MG PO DAILY for 30 Days, MG 12/10/18 Current Medications Current Medications Medications (Trade) Dose Ordered Sig/Shad Route PRN Reason Start Time Stop Time Status Last Admin Aspirin 81 mg DAILY PO 01/01/25 10:00 01/01/25 09:23 Atorvastatin Calcium (Lipitor) 20 mg HS PO 12/31/24 22:00 12/31/24 22:40 Gabapentin (Neurontin Capsule) 100 mg BID PO 12/31/24 22:00 01/01/25 09:22 Metoprolol Tartrate (Lopressor Tablet) 25 mg BID PO 12/31/24 22:00 01/01/25 09:23 Hydralazine HCl (Apresoline Injection) 10 mg Q6HP PRN IV SBP>150 12/31/24 21:30 Diagnostic Test (Pha) (Accu-Chek Comfort Curve T) 1 strip ACHS 12/31/24 22:00 01/01/25 16:24 Insulin Human Regular (InsuLIN R) ACHS SC 12/31/24 22:00 01/01/25 11:57 Dextrose 50 ml UD PRN IV Blood Sugar LESS THAN 60 12/31/24 21:30 Sodium Chloride (Saline Lock Ns) 10 ml Q8HR IV 12/31/24 22:00 01/01/25 13:21 Acetaminophen/ Hydrocodone Bitart ([place] 5/325MG Tab) 1 tab Q4HP PRN PO MODERATE PAIN (4-6 PAIN SCALE) 12/31/24 21:30 Ondansetron HCl (Zofran) 4 mg Q4HP PRN IV NAUSEA / VOMITING 12/31/24 21:30 Docusate Sodium (Colace Capsule) 100 mg BIDPRN PRN PO FOR CONSTIPATION 12/31/24 21:30 Acetaminophen (Tylenol Tablet) 650 mg Q6HP PRN PO PAIN SCALE 1-3 OR TEMP>100.4 12/31/24 21:30 Nitroglycerin (Ntrostat Sublingual) 0.4 mg Q5MINP PRN SL FOR CHEST PAIN 12/31/24 23:30 Morphine Sulfate 2 mg Q30M PRN IV FOR CHEST PAIN 12/31/24 23:30 Ticagrelor (Brilinta) 90 mg BID PO 01/01/25 22:00 UNV Sodium Chloride 1,000 ml @ 75 mls/hr [id number] IV 01/01/25 18:00 UNV Review of Systems Constitutional: No symptom reported Ears, Nose, & Throat: No symptom reported Eyes: No symptom reported Neurological: No symptoms reported Pulmonary/Respiratory: No symptom reported Cardiovascular: Positive for chest pain, denies palpitation, syncope Gastrointestinal: No symptom reported Genitourinary: No symptom reported Musculoskeletal: No symptom reported Skin: No symptom reported Psychiatric: No symptom reported Endocrine: No symptom reported Hemotologic/Lymphatic: No symptom reported Vital Signs Vital Signs Date Time Temp Pulse Resp B/P (MAP) Pulse Ox O2 Delivery O2 Flow Rate FiO2 01/01/25 17:19 98.0 65 17 148/94 (112) 96 98.0 01/01/25 01:30 Room Air* 0 21 Physical Exam GENERAL: Alert and oriented x 3. No acute distress. EYES: PERRL, EOMI. Anicteric. HENT: Moist mucous membranes. LUNGS: Clear to auscultation bilaterally. CARDIOVASCULAR: Regular rate and rhythm. ABDOMEN: Soft, nontender and nondistended. EXTREMITIES: No edema. NEUROLOGIC: No focal neurological deficits. SKIN: Warm, dry. Labs/Diagnostic Data Labs Test 01/01/25 16:06 01/01/25 06:52 12/31/24 14:59 12/31/24 12:17 Range/Units POC Glucose 165 H 70-106 mg/dl White Blood Count 6.5 4.4-10.8 10^3/uL Red Blood Count 4.99 4.5-5.90 10^6/uL Hemoglobin 14.0 13.5-17.5 g/dL Hematocrit 40.3 L 41.0-53.0 % Mean Corpuscular Volume 80.8 80.0-100.0 fL Mean Corpuscular Hemoglobin 28.0 28.0-32.0 pg Mean Corpuscular Hemoglobin Concent 34.6 32.0-36.0 g/dL Red Cell Distribution Width 14.9 H 11.8-14.3 % Platelet Count 179 140-450 10^3/uL Mean Platelet Volume 7.3 6.9-10.8 fL Neutrophils (%) (Auto) 53.3 37.0-80.0 % Lymphocytes (%) (Auto) 31.9 10.0-50.0 % Monocytes (%) (Auto) 11.0 0.0-12.0 % Eosinophils (%) (Auto) 3.2 0.0-7.0 % Basophils (%) (Auto) 0.6 0.0-2.0 % Neutrophils # (Auto) 3.5 1.6-8.6 10 ^3/uL Lymphocytes # (Auto) 2.1 0.4-5.4 10 ^3/uL Monocytes # (Auto) 0.7 0-1.3 10 ^3/uL Eosinophils # (Auto) 0.2 0-0.8 10 ^3/uL Basophils # (Auto) 0 0-0.2 10 ^3/uL Nucleated Red Blood Cells 0.1 % Sodium Level 142 136-145 mmol/L Potassium Level 4.1 3.5-5.1 mmol/L Chloride Level 110 H 98-107 mmol/L Carbon Dioxide Level 22 20-31 mmol/L Anion Gap 10 5-15 Blood Urea Nitrogen 12 9-23 mg/dL Creatinine 0.82 0.700-1.30 mg/dL Glomerular Filtration Rate Calc 104 >90 mL/min BUN/Creatinine Ratio 14.6 10.0-20.0 Serum Glucose 111 H 74-106 mg/dL Calcium Level 9.7 8.7-10.4 mg/dL Total Bilirubin 0.6 0.2-1.0 mg/dL Aspartate Amino Transferase (AST) 13 <34 U/L Alanine Aminotransferase (ALT) 13 7-40 U/L Alkaline Phosphatase 59 46-116 U/L Total Protein 6.4 5.7-8.2 g/dL Albumin 3.9 3.2-4.8 g/dL Troponin I High Sensitivity 3 L </=54 ng/L B-Type Natriuretic Peptide 44.60 0-100 pg/mL Assessment Acute chest pain. Rule out progressive CAD. Status post PTCA x 7 stents. Diabetes type 2. Plan/Recommendation I agree with your ongoing assessment and care of plan. Patient has been seen by Debbie Gillespie NP on my behalf, her and I discussed the plan with the patient. Given the patient's extensive cardiac history and persistent chest pain despite medical therapy, he is scheduled to undergo a left heart catheterization on Friday, 2024, for further evaluation. The procedure, including its purpose and potential risk was discussed in detail with the patient and his spouse, both of whom verbalized understanding and agreement with the plan. In the interim, the patient will continue on dual antiplatelet therapy and statins, with close cardiac monitoring and surveillance Additional plan as per the hospital course. Plan discussed with: Patient NYHA Physical activity limitations: NA Date of Service: Jan 01, 2025 Billing Provider: SHAHEED MORALES MD Cardiology Common Codes: [id number] INP/OBS CARE (High) Cardiology Consultation Codes: [id number] CONSULT <60MIN SHAHEED MORALES MD Jan 01, 2025 18:13
[2025-01-02] VITALS (7 sets, daily range): BP systolic 138–163; BP diastolic 66–99; PULSE 63–75; RESP 17–18; TEMP 97.4–98.7; O2SAT 96–99
--- NOTE | 2025-01-02 10:33 | DVHPN2 ---
Consult Progress Note Subjective Patient reports: No new complaints Review of Systems: HEENT:Normal Other Systems: Denies chest pain No cardiac event reported Objective vital signs Vital Sign Date Time Temp Pulse Resp B/P (MAP) Pulse Ox O2 Delivery O2 Flow Rate FiO2 01/02/25 08:50 68 144/87 01/02/25 08:00 Room Air* 0 21 01/02/25 04:58 98.7 17 98 98.7 Total Intake and Output 01/01/25 01/01/25 01/02/25 15:00 23:00 07:00 Intake Total 300 ml 350 ml Balance 300 ml 350 ml medications Current Medications Medications Dose Ordered Sig/Shad Route Start Time Stop Time Status Last Admin Dose Admin Aspirin 81 mg DAILY PO 01/01/25 10:00 01/02/25 08:50 81 MG Atorvastatin Calcium 20 mg HS PO 12/31/24 22:00 01/01/25 21:25 20 MG Gabapentin 100 mg BID PO 12/31/24 22:00 01/02/25 08:50 100 MG Metoprolol Tartrate 25 mg BID PO 12/31/24 22:00 01/02/25 08:50 25 MG Hydralazine HCl 10 mg Q6HP PRN IV 12/31/24 21:30 Diagnostic Test (Pha) 1 strip ACHS 12/31/24 22:00 01/02/25 06:24 1 STRIP Insulin Human Regular ACHS SC 12/31/24 22:00 01/01/25 11:57 3 UNITS Dextrose 50 ml UD PRN IV 12/31/24 21:30 Sodium Chloride 10 ml Q8HR IV 12/31/24 22:00 01/02/25 06:24 10 ML Acetaminophen/ Hydrocodone Bitart 1 tab Q4HP PRN PO 12/31/24 21:30 Ondansetron HCl 4 mg Q4HP PRN IV 12/31/24 21:30 Docusate Sodium 100 mg BIDPRN PRN PO 12/31/24 21:30 Acetaminophen 650 mg Q6HP PRN PO 12/31/24 21:30 Nitroglycerin 0.4 mg Q5MINP PRN SL 12/31/24 23:30 Morphine Sulfate 2 mg Q30M PRN IV 12/31/24 23:30 Ticagrelor 90 mg BID PO 01/01/25 22:00 01/02/25 08:50 90 MG Sodium Chloride 1,000 ml @ 75 mls/hr [id number] IV 01/01/25 18:00 01/01/25 18:00 75 MLS/HR Examination: GENERAL:Normal, LUNGS:Normal, CVS:Normal laboratory and microbiology Laboratory Tests 01/01/25 06:52 Test 01/01/25 06:52 Range/Units Serum Glucose 111 H 74-106 mg/dL Problem List/Assessment/Plan Problem List/Assessment/Plan Acute chest pain Rule out progressive CAD s/p PTCA x 7 stents Diabetes type 2 Plan/Recommendation (Dr. Morales ): Given the patient's extensive cardiac history and persistent chest pain despite medical therapy, he is scheduled to undergo a left heart catheterization on Friday, 2024, for further evaluation. The procedure, including its purpose and potential risk was discussed in detail with the patient and his spouse, both of whom verbalized understanding and agreement with the plan. In the interim, the patient will continue on dual antiplatelet therapy and statins, with close cardiac monitoring and surveillance Plan discussed with: Patient Date of Service: Jan 02, 2025 Billing Provider: SHAHEED MORALES MD Common Visit Codes: CONSULT ONLY Consultation Codes: [id number] CONSULT <45MIN VI MATOS POLICE LIEUTENANT PRECINCT Jan 02, 2025 10:33
--- NOTE | 2025-01-02 11:50 | ECG ---
[facility] Test Date: 2025-01-02 Test Time: 06:13:27 Pat Name: LORE ZHANG Department: Respiratoy Room: 0246T B Gender: M Vp Analysis: GLENROY : 1970 Requested By: EMMETT RODRIGUEZ Order Number: [id number] Reading MD: Homero Greer Measurements Intervals [place] Rate: 63 P: 61 [place]: 161 QRS: 15 QRSD: 83 T: 45 QT: 412 QTc: 422 Interpretive Statements Sinus rhythm Minimal ST elevation, anterior leads Baseline wander in lead(s) V2 Electronically Signed On 01-04-2025 22:16:07 PDT by Homero Greer Please click the below link to view image of tracing.
[2025-01-02 12:07] LABS: Urine Bacteria None Seen /hpf (None Seen)
[2025-01-02 12:14] LABS: Urine Blood Negative /uL (Negative); Urine Clarity Clear (Clear); Urine Color Colorless (Yellow); Urine Protein, UAD Negative (Negative); Urine Specific Gravity 1.006 (1.001-1.035); Urine Squamous Epithelial Cell None Seen /hpf (<5); Urine Urobilinogen Normal (Negative); Urine WBC < 1 /HPF (0-3)
[2025-01-02] MEDS: hydrALAZINE HCL 20 MG/ML VL IV PRN (12:56)
--- NOTE | 2025-01-02 15:37 | DVHINCON2 ---
Date of service: Jan 01, [address] Wylie Reason for Consultation Dyspnea History of Present Illness History Source: Patient Exam Limitations: No limitations HPI Patient is a 54-year old gentleman with a history of CAD who presented with chest pain, dry cough and chronic exertional dyspnea. Was seen in the emergency room where imaging was mostly unremarkable and was admitted for further workup. Pulmonology was consulted to assist in management of dyspnea. Home Meds Reported Medications Ticagrelor Base (BRILINTA) 90 Mg Tab, 1 TAB PO BID 01/01/25 Metformin Hydrochloride (Metformin Hcl) 500 Mg Tab, 500 MG PO DAILY for 30 Days, MG 12/10/18 Past Medical History Cardiac: CAD Pulmonary: No pertinent Hx Central Nervous System: No pertinent Hx GI: No pertinent Hx Hemotology/Oncology: No pertinent Hx Hepatobiliary: No pertinent Hx Psychiatric: No pertinent Hx Musculoskeletal: No pertinent Hx Rheumotologic: No pertinent Hx Infectious Disease: No peritnent Hx ENT: No pertinent Hx Renal/: No pertinent Hx Endocrine: No pertinent Hx Dermatology: No pertinent Hx Past Surgical History: No pertinent Hx Family History: DM Patient Family History: Diabetes mellitus G8 MOTHER G8 FATHER Smoker: No Hx (Negative) Alocohol: None Drugs: None Lives with: With family Domestic Violence: Neg Review of Systems Constitutional: No symptom reported Ears, Nose, & Throat: No symptom reported Eyes: No symptom reported Pulmonary/Respiratory: Dyspnea, Cough Cardiovascular: Chest Pain Gastrointestinal: No symptom reported Genitourinary: No symptom reported Musculoskeletal: No symptom reported Skin: No symptom reported Psychiatric: No symptom reported Endocrine: No symptom reported Hemotologic/Lymphatic: No symptom reported H&P Exam Vital Signs Vital Signs Date Time Temp Pulse Resp B/P (MAP) Pulse Ox O2 Delivery O2 Flow Rate FiO2 01/02/25 13:00 97.4 63 17 163/99 (120) 98 97.4 01/02/25 08:00 Room Air* 0 21 General Appeara: Well developed, Well nourished, Normal Appearance Head Exam: Normal inspection Neck Exam: Normal inspection, Non-tender, Normal alignment Eye Exam: bilateral eye Normal inspection, bilateral eye PERRL, bilateral eye EOMI Ear Exam: bilateral ear Auricle normal, bilateral ear Canal normal, bilateral ear TM normal Nasal Exam: Normal inspection Mouth: Normal Inspection Pulmonary/Respiratory: Normal inspection, Normal breath sounds, Chest non- tender, Lungs clear Cardiovascular/Chest: Normal inspection, Regular rate, Normal Rhythm Peripheral Pulses: 4+ Radial (R), 4+ Radial (L), 4+ Brachial (R), 4+ Brachial (L) Abdominal Exam: Normal bowel sounds Labs/Xrays Labs Test 01/02/25 12:00 01/01/25 18:39 01/01/25 16:06 01/01/25 06:52 Range/Units Urine Color Colorless Yellow Urine Clarity Clear Clear Urine pH 6.0 5.0-9.0 Urine Specific [place] 1.006 1.001-1.035 Urine Protein Negative Negative Urine Ketones Negative Negative Urine Blood Negative Negative /uL Urine Nitrite Negative Negative Urine Bilirubin Negative Negative Urine Urobilinogen Normal Negative mg/dL Urine Leukocyte Esterase Negative Negative /uL Urine RBC 1 0 - 3 /hpf Urine Microscopic WBC < 1 0-3 /HPF Urine Squamous Epithelial Cells None seen <5 /hpf Urine Bacteria None seen None Seen /hpf Urine Glucose Normal Normal mg/dL Prothrombin Time 10.6 9.3-11.8 sec Prothrombin Time INR 1.00 0.9-1.15 Activated Partial Thromboplast Time 27.4 24.5-34.5 SEC POC Glucose 165 H 70-106 mg/dl White Blood Count 6.5 4.4-10.8 10^3/uL Red Blood Count 4.99 4.5-5.90 10^6/uL Hemoglobin 14.0 13.5-17.5 g/dL Hematocrit 40.3 L 41.0-53.0 % Mean Corpuscular Volume 80.8 80.0-100.0 fL Mean Corpuscular Hemoglobin 28.0 28.0-32.0 pg Mean Corpuscular Hemoglobin Concent 34.6 32.0-36.0 g/dL Red Cell Distribution Width 14.9 H 11.8-14.3 % Platelet Count 179 140-450 10^3/uL Mean Platelet Volume 7.3 6.9-10.8 fL Neutrophils (%) (Auto) 53.3 37.0-80.0 % Lymphocytes (%) (Auto) 31.9 10.0-50.0 % Monocytes (%) (Auto) 11.0 0.0-12.0 % Eosinophils (%) (Auto) 3.2 0.0-7.0 % Basophils (%) (Auto) 0.6 0.0-2.0 % Neutrophils # (Auto) 3.5 1.6-8.6 10 ^3/uL Lymphocytes # (Auto) 2.1 0.4-5.4 10 ^3/uL Monocytes # (Auto) 0.7 0-1.3 10 ^3/uL Eosinophils # (Auto) 0.2 0-0.8 10 ^3/uL Basophils # (Auto) 0 0-0.2 10 ^3/uL Nucleated Red Blood Cells 0.1 % Sodium Level 142 136-145 mmol/L Potassium Level 4.1 3.5-5.1 mmol/L Chloride Level 110 H 98-107 mmol/L Carbon Dioxide Level 22 20-31 mmol/L Anion Gap 10 5-15 Blood Urea Nitrogen 12 9-23 mg/dL Creatinine 0.82 0.700-1.30 mg/dL Glomerular Filtration Rate Calc 104 >90 mL/min BUN/Creatinine Ratio 14.6 10.0-20.0 Serum Glucose 111 H 74-106 mg/dL Calcium Level 9.7 8.7-10.4 mg/dL Total Bilirubin 0.6 0.2-1.0 mg/dL Aspartate Amino Transferase (AST) 13 <34 U/L Alanine Aminotransferase (ALT) 13 7-40 U/L Alkaline Phosphatase 59 46-116 U/L Total Protein 6.4 5.7-8.2 g/dL Albumin 3.9 3.2-4.8 g/dL Test 12/31/24 14:59 12/31/24 12:17 Range/Units Troponin I High Sensitivity 3 L </=54 ng/L B-Type Natriuretic Peptide 44.60 0-100 pg/mL Assessment/Plan Plan Impression Nonspecific dyspnea Pulmonary nodules Chest pain Atelectasis Patient seen and examined Events Low oxygen requirements On room air Vital signs stable Labs and imaging reviewed Patient previously underwent CT chest at [facility] earlier this year Report reviewed, bilateral pulmonary nodules reported 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
--- NOTE | 2025-01-02 15:38 | DVHPN2 ---
Progress Note - Dictate Date Seen: Jan 02, 2025 Medical Necessity Reason Pt with a Central, PICC or Fol: No vital signs Vital Sign Date Time Temp Pulse Resp B/P (MAP) Pulse Ox O2 Delivery O2 Flow Rate FiO2 01/02/25 13:00 97.4 63 17 163/99 (120) 98 97.4 01/02/25 08:00 Room Air* 0 21 Total Intake and Output 01/01/25 01/01/25 01/02/25 15:00 23:00 07:00 Intake Total 300 ml 350 ml Balance 300 ml 350 ml medications Current Medications Medications Dose Ordered Sig/Shad Route Start Time Stop Time Status Last Admin Dose Admin Aspirin 81 mg DAILY PO 01/01/25 10:00 01/02/25 08:50 81 MG Atorvastatin Calcium 20 mg HS PO 12/31/24 22:00 01/01/25 21:25 20 MG Gabapentin 100 mg BID PO 12/31/24 22:00 01/02/25 08:50 100 MG Metoprolol Tartrate 25 mg BID PO 12/31/24 22:00 01/02/25 08:50 25 MG Hydralazine HCl 10 mg Q6HP PRN IV 12/31/24 21:30 01/02/25 12:56 10 MG Diagnostic Test (Pha) 1 strip ACHS 12/31/24 22:00 01/02/25 12:04 1 STRIP Insulin Human Regular ACHS SC 12/31/24 22:00 01/02/25 12:03 3 UNITS Dextrose 50 ml UD PRN IV 12/31/24 21:30 Sodium Chloride 10 ml Q8HR IV 12/31/24 22:00 01/02/25 14:19 10 ML Acetaminophen/ Hydrocodone Bitart 1 tab Q4HP PRN PO 12/31/24 21:30 Ondansetron HCl 4 mg Q4HP PRN IV 12/31/24 21:30 Docusate Sodium 100 mg BIDPRN PRN PO 12/31/24 21:30 Acetaminophen 650 mg Q6HP PRN PO 12/31/24 21:30 Nitroglycerin 0.4 mg Q5MINP PRN SL 12/31/24 23:30 Morphine Sulfate 2 mg Q30M PRN IV 12/31/24 23:30 Ticagrelor 90 mg BID PO 01/01/25 22:00 01/02/25 08:50 90 MG Sodium Chloride 1,000 ml @ 75 mls/hr [id number] IV 01/01/25 18:00 01/01/25 18:00 75 MLS/HR laboratory and microbiology Laboratory Tests 01/01/25 06:52 Test 01/01/25 06:52 Range/Units Serum Glucose 111 H 74-106 mg/dL Assessment/Plan Impression Nonspecific dyspnea Pulmonary nodules Chest pain Atelectasis Patient seen and examined Events Low oxygen requirements On room air No distress Labs and imaging reviewed Patient previously underwent CT chest at [facility] earlier this year Report reviewed, bilateral pulmonary nodules reported 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
--- NOTE | 2025-01-02 16:20 | DVH ---
Procedure: CT CHEST WITHOUT CONTRAST Reason for study/Clinical History: lung mass Comparison Study: None Exam Date: 01/02/2025 03:47 PM TECHNIQUE: Multidetector CT of the chest was performed from the lung apices to the upper abdomen with out the use of intravenous contract. Axial, coronal and sagittal multiplanar reformats were performed . Radiation Dose Information: CT Dose: CTDI volume is 10.47 mGy. Dose-length product is 425.2 mGy*cm The dose indicators for CT are the volume Computed Tomography (CT) Dose Index (CTDIvol) and the Dose Length Product (DLP), and are measured in units of mGy and mGy-cm, respectively. These indicators are not patient dose, but values generated from the CT scanner acquisition factors. The report includes radiation exposure data for exposures received during this examination. FINDINGS: Lower neck: Normal thyroid. Lungs: No focal consolidation, pleural effusion or pneumothorax. 8.7 by 8.1 cm oval mass left perihil ar region. Recommend repeat study with IV contrast. Heart/Vascular Structures: Normal heart size. No pericardial effusion. Lymph Nodes: No adenopathy Pleura: No pleural effusion or significant pneumothorax. Musculoskeletal: No acute osseous abnormality. Soft tissues: Normal. Upper abdomen: Limited portions of the upper abdomen are unremarkable. IMPRESSION: 1. 8.7 x 8.1 cm left perihilar mass extending into the left infra hilar region. Recommend repeat stud y with IV contrast. If patient unable to tolerate contrast recommend PET scan. Radiation optimization: All CT scans at this facility use at least one of these dose optimization abebe hniques: automated exposure control mA and/or kV adjustment per patient size (includes targeted exam s where dose is matched to clinical indication) or iterative reconstruction. HS:Y
--- NOTE | 2025-01-02 16:25 | DVHPN2 ---
Subjective Patient denies any chest pain or shortness for breath, CT chest noncontrast has been ordered. Patient is currently scheduled for left heart catheterization in a.m.. Reviewed: Care Plan Changes from previous H/P or p: No Changes Eyes: No Pain, No Vision change, No Conjunctivae inflammation, No Eyelid inflammation, No Other, No Redness ENT: No Ear pain, No Ear discharge, No Nose pain, No Nose discharge, No Nose congestion, No Mouth pain, No Mouth swelling, No Throat pain, No Throat swelling, No Other Cardiovascular: Chest Pain; No Palpitations, No Orthopnea, No Paroxysmal Noc. Dyspnea, No Edema, No Lt Headedness, No Other Respiratory: No Cough, No Dry; Shortness of breath; No SOB with excertion, No Wheezing, No Hemoptysis, No Pleuritic Pain, No Sputum, No Other Gastrointestinal: No Nausea, No Vomiting, No Abdominal Pain, No Diarrhea, No Constipation, No Melena, No Hematochezia, No Other Genitourinary: No Dysuria, No Frequency, No Incontinence, No Hematuria, No Retention, No Other Musculoskeletal: No other, No neck pain, No shoulder pain, No arm pain, No back pain, No hand pain, No leg pain, No foot pain Skin: No Rash, No Lesions, No Jaundice, No Bruising, No Other Objective Vitals Vital Signs Date Time Temp Pulse Resp B/P (MAP) Pulse Ox O2 Delivery O2 Flow Rate FiO2 01/02/25 13:00 97.4 63 17 163/99 (120) 98 97.4 01/02/25 08:00 Room Air* 0 21 Intake/Output Intake and Output 01/02/25 07:00 Intake Total 650 ml Balance 650 ml Intake Oral 650 ml # Voids 3 # Bowel Movements 1 Exam HEENT pupils are reactive Neck is supple CVS S1-S2 regular rate and rhythm Respiratory are clear GI positive bowel sound Extremity no edema 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 no motor deficit Medications Current Medications Medications Dose Ordered Sig/Shad Route Start Time Stop Time Status Last Admin Dose Admin Aspirin 81 mg DAILY PO 01/01/25 10:00 01/02/25 08:50 81 MG Atorvastatin Calcium 20 mg HS PO 12/31/24 22:00 01/01/25 21:25 20 MG Gabapentin 100 mg BID PO 12/31/24 22:00 01/02/25 08:50 100 MG Metoprolol Tartrate 25 mg BID PO 12/31/24 22:00 01/02/25 08:50 25 MG Hydralazine HCl 10 mg Q6HP PRN IV 12/31/24 21:30 01/02/25 12:56 10 MG Diagnostic Test (Pha) 1 strip ACHS 12/31/24 22:00 01/02/25 12:04 1 STRIP Insulin Human Regular ACHS SC 12/31/24 22:00 01/02/25 12:03 3 UNITS Dextrose 50 ml UD PRN IV 12/31/24 21:30 Sodium Chloride 10 ml Q8HR IV 12/31/24 22:00 01/02/25 14:19 10 ML Acetaminophen/ Hydrocodone Bitart 1 tab Q4HP PRN PO 12/31/24 21:30 Ondansetron HCl 4 mg Q4HP PRN IV 12/31/24 21:30 Docusate Sodium 100 mg BIDPRN PRN PO 12/31/24 21:30 Acetaminophen 650 mg Q6HP PRN PO 12/31/24 21:30 Nitroglycerin 0.4 mg Q5MINP PRN SL 12/31/24 23:30 Morphine Sulfate 2 mg Q30M PRN IV 12/31/24 23:30 Ticagrelor 90 mg BID PO 01/01/25 22:00 01/02/25 08:50 90 MG Sodium Chloride 1,000 ml @ 75 mls/hr [id number] IV 01/01/25 18:00 01/01/25 18:00 75 MLS/HR Laboratory Results Laboratory Tests 01/01/25 06:52 Coagulation Test 01/01/25 18:39 Prothrombin Time 10.6 sec (9.3-11.8) Prothrombin Time INR 1.00 (0.9-1.15) Activated Partial Thromboplast Time 27.4 SEC (24.5-34.5) Urinalysis Test 01/02/25 12:00 Urine Color Colorless (Yellow) Urine Clarity Clear (Clear) Urine pH 6.0 (5.0-9.0) Urine Specific [place] 1.006 (1.001-1.035) Urine Protein Negative (Negative) Urine Ketones Negative (Negative) Urine Blood Negative /uL (Negative) Urine Nitrite Negative (Negative) Urine Bilirubin Negative (Negative) Urine Urobilinogen Normal mg/dL (Negative) Urine Leukocyte Esterase Negative /uL (Negative) Urine RBC 1 /hpf (0 - 3) Urine Microscopic WBC < 1 /HPF (0-3) Urine Squamous Epithelial Cells None seen /hpf (<5) Urine Bacteria None seen /hpf (None Seen) Urine Glucose Normal mg/dL (Normal) Assessment/Plan Assessment/Plan 54-year-old male with a known history of hypertension, diabetes type 2, known coronary artery disease status post PCI with seven stents, lung facial mass status post biopsy at [facility] in the past presented to the hospital with shortness of breaths has a chest pain found to have 1. Chest pain rule out CO 2. Known coronary artery disease status post multiple stents 3. Hypertension 4. Diabetes mellitus type 2 5. 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 Continue current medication, pulmonary consultation. Plan discussed with: Patient My Orders Orders - EMMETT RODRIGUEZ MD Procedure Category Date Status Time *Consult CONS 01/01/25 Transmitted / 19:[address] 01/02/25 Resulted 12:57 Date of Service: Jan 02, 2025 Billing Provider: EMMETT RODRIGEUZ MD Common Visit Codes: [id number] INP/OBS CARE(MOD) EMMETT RODRIGUEZ MD Jan 02, 2025 16:25
--- NOTE | 2025-01-02 23:24 | DVHPN2 ---
Consult Progress Note Subjective Patient reports: No new complaints Review of Systems: HEENT:Normal Other Systems: Patient was seen and evaluated in follow up. Patient denies chest pain. No cardiac events reported. Patient reports feeling well today. Telemetry reviewed. Objective vital signs Vital Sign Date Time Temp Pulse Resp B/P (MAP) Pulse Ox O2 Delivery O2 Flow Rate FiO2 01/02/25 09:00 98.0 68 18 144/87 (106) 99 98.0 01/02/25 08:00 Room Air* 0 21 Total Intake and Output 01/01/25 01/01/25 01/02/25 15:00 23:00 07:00 Intake Total 300 ml 350 ml Balance 300 ml 350 ml medications Current Medications Medications Dose Ordered Sig/Shad Route Start Time Stop Time Status Last Admin Dose Admin Aspirin 81 mg DAILY PO 01/01/25 10:00 01/02/25 08:50 81 MG Atorvastatin Calcium 20 mg HS PO 12/31/24 22:00 01/01/25 21:25 20 MG Gabapentin 100 mg BID PO 12/31/24 22:00 01/02/25 08:50 100 MG Metoprolol Tartrate 25 mg BID PO 12/31/24 22:00 01/02/25 08:50 25 MG Hydralazine HCl 10 mg Q6HP PRN IV 12/31/24 21:30 Diagnostic Test (Pha) 1 strip ACHS 12/31/24 22:00 01/02/25 12:04 1 STRIP Insulin Human Regular ACHS SC 12/31/24 22:00 01/02/25 12:03 3 UNITS Dextrose 50 ml UD PRN IV 12/31/24 21:30 Sodium Chloride 10 ml Q8HR IV 12/31/24 22:00 01/02/25 06:24 10 ML Acetaminophen/ Hydrocodone Bitart 1 tab Q4HP PRN PO 12/31/24 21:30 Ondansetron HCl 4 mg Q4HP PRN IV 12/31/24 21:30 Docusate Sodium 100 mg BIDPRN PRN PO 12/31/24 21:30 Acetaminophen 650 mg Q6HP PRN PO 12/31/24 21:30 Nitroglycerin 0.4 mg Q5MINP PRN SL 12/31/24 23:30 Morphine Sulfate 2 mg Q30M PRN IV 12/31/24 23:30 Ticagrelor 90 mg BID PO 01/01/25 22:00 01/02/25 08:50 90 MG Sodium Chloride 1,000 ml @ 75 mls/hr [id number] IV 01/01/25 18:00 01/01/25 18:00 75 MLS/HR Examination: GENERAL:Normal, HEENT:Normal, NECK:Normal, LUNGS:Normal, CVS:Normal, ABDOMEN:Normal, MSK:Normal laboratory and microbiology Laboratory Tests 01/01/25 06:52 Test 01/01/25 06:52 Range/Units Serum Glucose 111 H 74-106 mg/dL Problem List/Assessment/Plan Problem List/Assessment/Plan Problem List/Assessment/Plan Acute chest pain. Rule out progressive CAD. s/p PTCA x 7 stents. Diabetes type 2. Plan/Recommendation Continued all current supportive medical care. Patient has been seen by Debbie Gillespie NP on my behalf, her and I discussed the plan with the patient. Given the patient's extensive cardiac history and persistent chest pain despite medical therapy, he is scheduled to undergo a left heart catheterization on Friday, 2024, for further evaluation. The procedure, including its purpose and potential risk was discussed in detail with the patient and his spouse, both of whom verbalized understanding and agreement with the plan. In the interim, the patient will continue on dual antiplatelet therapy and statins, with close cardiac monitoring and surveillance Additional plan as per the hospital course. Plan discussed with: Patient Date of Service: Jan 02, 2025 Billing Provider: SHAHEED MORALES MD Cardiology Common Codes: [id number] INP/OBS CARE (High) Cardiology Consultation Codes: [id number] CONSULT <45MIN SHAHEED MORALES MD Jan 02, 2025 12:58
[2025-01-03] VITALS (11 sets, daily range): BP systolic 113–141; BP diastolic 58–89; PULSE 60–98; RESP 14–19; TEMP 36.6; O2SAT 93–99
[2025-01-03 06:50] LABS: Alanine Aminotransferase 13 U/L (7-40); Alkaline Phosphatase 62 U/L (46-116); Anion Gap 13 (5-15); Aspartate Aminotransferase 13 U/L (<34); BUN/Creatinine Ratio 15.5 (10.0-20.0); Blood Urea Nitrogen 13 mg/dL (9-23); Calcium 9.3 mg/dL (8.7-10.4); Potassium 3.8 mmol/L (3.5-5.1); Sodium 142 mmol/L (136-145); Total Protein 6.6 g/dL (5.7-8.2)
[2025-01-03 06:51] LABS: Bilirubin, Total 0.6 mg/dL (0.2-1.0); Carbon Dioxide 20 mmol/L (20-31); Chloride 109 mmol/L (98-107); Glucose 120 mg/dL (74-106)
[2025-01-03] MEDS: IODIXANOL 320MG/ML 100ML BTL IV ONE (07:09)
[2025-01-03] MEDS: MIDAZOLAM HCL 2MG/2ML 2ml VIAL (1mg/ml) ONE (07:23)
[2025-01-03] MEDS: VERAPAMIL 2.5MG/ML INJ 2ML VIAL IV ONE (07:23)
[2025-01-03] MEDS: HEPARIN SODIUM (PORCINE) 5000 UNITS/ML 1ML VIAL ONE (07:23)
[2025-01-03] MEDS: ANGIOMAX 250 MG VIAL IV ONE (07:23)
[2025-01-03] MEDS: fentaNYL CITRATE 100 MCG/2 ML VL ONE (07:23)
[2025-01-03] MEDS: SODIUM CHL 0.9% 0 ML ONE (07:24)
[2025-01-03] MEDS: NITROGLYCERIN 50MG/250ML 250 ML IV ONE (07:24)
[2025-01-03] MEDS: LIDOCAINE 2%HCL (LOCAL ANESTH.) INJ 20ML MDV ONE (07:24)
--- NOTE | 2025-01-03 09:20 | DVHSR ---
APPROVED REPORT EXAM: Two-dimensional and M-mode echocardiogram with Doppler and color Doppler. Blood Pressure: 144/87 mmHg INDICATION CAD RISK FACTORS Height: 5'10", Weight: 199 DIMENSIONS LVDd4.5 (3.8-5.7cm)LA (2D)3.5 (1.9-4.0cm)Aortic Root3.7 (2.0-3.7cm) LVDs3.0 (2.5-4.0cm)LA (MM) (1.9-4.0cm)Aortic Cusp Exc1.9 (1.5-2.0cm) EF (%) 55.0 (55-70%)Rt. Atrium3.9 (1.9-4.0cm)Asc. Aorta cm IVSd1.0 (0.7-1.1cm)RV (D)3.5 (1.8-2.4cm) PWd1.1 (0.7-1.1cm) Mitral Valve MitralMitral Stenosis E wave0.67m/sMV Mean GR.mmHg A wave0.51m/sMV Peak GR.mmHg E/A ratio1.32D MVAcm2 DECEL [id number] 1/2 [place] Aortic Valve Aortic ValveAortic Stenosis V10.74m/Eros Mean GR.2mmHg V20.96m/Eros Peak GR.4mmHg LVOT Diameter2.0 (1.8-2.4cm)Doppler AVA2.42cm2 Pulmonic Valve V20.87m/s Conclusion MILD LVH AND MILD LV DIASTOLIC DYSFUNCTION LV EF IS 65% NORMAL VALVES NO EFFUSION NORMAL RV FUNCTION
--- NOTE | 2025-01-03 10:42 | DVHOP ---
DATE OF SURGERY: 01/03/2025 TECHNIQUE PERFORMED: * Ultrasound of the right radial artery. * Management of conscious sedation. * Insertion of 6-Bulgarian arterial line from right radial artery. * Left heart cath. * Left ventriculogram. * [place] selective left and right coronary artery angiography. ASSISTANTS: Assisted by our staff, Ganesh Guallpa Angie, Angela, and Nimco. INDICATIONS: The patient has total of 7 coronary stents. Two stents were done in [facility], 5 stents were done in [facility] in [place], [place] and the patient has come here because of an acute coronary syndrome. He walked only 15-20 feet and has severe chest pain and short of breath. DESCRIPTION OF PROCEDURE: Risks and benefits discussed. Counseling and questions answered. Information given. The patient has been brought to labor custodian. The right radial area was thoroughly cleaned with soap and Betadine. Lidocaine was given. IV versed and fentanyl was given. Ultrasound was done and under ultrasound guidance, 6-Bulgarian arterial line had been placed. The patient got 100 mcg of nitroglycerin, 2.5 mg verapamil, 2000 units of heparin. With help of the 5-Bulgarian TIG catheter, we were able to do right coronary artery angiography. Subsequently, we put a JL3.5 catheter and left coronary angiography was done. Subsequently, we exchanged to the pigtail catheter. Complete left heart cath has been done. Left ventriculogram was done in the right anterior oblique view with a total of 10 mL dye. Post-LV gram, left ventriculography was performed with the help of pull-through technique. Aortic pressure also performed. J-wire was passed. Pigtail catheter also had been discontinued. Procedure completed. IMPRESSION: * Normal left main. * Left artery proximally has a stent in the most proximal region widely open. * The mid and distal region of the left artery have mild plaque without evidence of any specific stenosis. * Circumflex and obtuse marginal artery both are moderate sized artery and normal. * The patient's right coronary artery is a very large super-dominant artery. The right coronary artery has a stent from the ostium all the way to the distal one-third to all the way to his bifurcation and is widely open. Posterior descending artery normal. Posterolateral branch is normal. * Ejection fraction 65% is normal. CONCLUSION: * The previously deployed stent in the right coronary artery from the ostium all the way to the distal region, they all are widely open. There is no in-stent stenosis. * Left main normal. * The left artery also have a stent in the proximal region, also widely open. * The circumflex and obtuse marginal artery also widely open without stenosis. * Ejection fraction 65%. * Now, the patient most likely has microvascular disease. PLAN: conservative medical treatment. Rima Keller MD MP/PANKAJ/MEHREEN TID: [id number] RECEIPT: [id number] [facility]Roger
--- NOTE | 2025-01-03 16:18 | DVHDS2 ---
Discharge Summary Date of Admission Dec 31, 2024 at 23:24 Date of Discharge: Jan 03, 2025 Labs/Diagnostic Data: Laboratory Results Test 01/03/25 11:03 01/03/25 05:39 01/02/25 12:00 01/01/25 18:39 POC Glucose 145 mg/dl (70-106) Sodium Level 142 mmol/L (136-145) Potassium Level 3.8 mmol/L (3.5-5.1) Chloride Level 109 mmol/L (98-107) Carbon Dioxide Level 20 mmol/L (20-31) Anion Gap 13 (5-15) Blood Urea Nitrogen 13 mg/dL (9-23) Creatinine 0.84 mg/dL (0.700-1.30) Glomerular Filtration Rate Calc 104 mL/min (>90) BUN/Creatinine Ratio 15.5 (10.0-20.0) Serum Glucose 120 mg/dL (74-106) Calcium Level 9.3 mg/dL (8.7-10.4) Total Bilirubin 0.6 mg/dL (0.2-1.0) Aspartate Amino Transferase (AST) 13 U/L (<34) Alanine Aminotransferase (ALT) 13 U/L (7-40) Alkaline Phosphatase 62 U/L (46-116) Total Protein 6.6 g/dL (5.7-8.2) Albumin 4.0 g/dL (3.2-4.8) Urine Color Colorless (Yellow) Urine Clarity Clear (Clear) Urine pH 6.0 (5.0-9.0) Urine Specific [place] 1.006 (1.001-1.035) Urine Protein Negative (Negative) Urine Ketones Negative (Negative) Urine Blood Negative /uL (Negative) Urine Nitrite Negative (Negative) Urine Bilirubin Negative (Negative) Urine Urobilinogen Normal mg/dL (Negative) Urine Leukocyte Esterase Negative /uL (Negative) Urine RBC 1 /hpf (0 - 3) Urine Microscopic WBC < 1 /HPF (0-3) Urine Squamous Epithelial Cells None seen /hpf (<5) Urine Bacteria None seen /hpf (None Seen) Urine Glucose Normal mg/dL (Normal) Prothrombin Time 10.6 sec (9.3-11.8) Prothrombin Time INR 1.00 (0.9-1.15) Activated Partial Thromboplast Time 27.4 SEC (24.5-34.5) Test 01/01/25 06:52 12/31/24 14:59 12/31/24 12:17 White Blood Count 6.5 10^3/uL (4.4-10.8) Red Blood Count 4.99 10^6/uL (4.5-5.90) Hemoglobin 14.0 g/dL (13.5-17.5) Hematocrit 40.3 % (41.0-53.0) Mean Corpuscular Volume 80.8 fL (80.0-100.0) Mean Corpuscular Hemoglobin 28.0 pg (28.0-32.0) Mean Corpuscular Hemoglobin Concent 34.6 g/dL (32.0-36.0) Red Cell Distribution Width 14.9 % (11.8-14.3) Platelet Count 179 10^3/uL (140-450) Mean Platelet Volume 7.3 fL (6.9-10.8) Neutrophils (%) (Auto) 53.3 % (37.0-80.0) Lymphocytes (%) (Auto) 31.9 % (10.0-50.0) Monocytes (%) (Auto) 11.0 % (0.0-12.0) Eosinophils (%) (Auto) 3.2 % (0.0-7.0) Basophils (%) (Auto) 0.6 % (0.0-2.0) Neutrophils # (Auto) 3.5 10 ^3/uL (1.6-8.6) Lymphocytes # (Auto) 2.1 10 ^3/uL (0.4-5.4) Monocytes # (Auto) 0.7 10 ^3/uL (0-1.3) Eosinophils # (Auto) 0.2 10 ^3/uL (0-0.8) Basophils # (Auto) 0 10 ^3/uL (0-0.2) Nucleated Red Blood Cells 0.1 % Troponin I High Sensitivity 3 ng/L (</=54) B-Type Natriuretic Peptide 44.60 pg/mL (0-100) Other Laboratory Tests 01/03/25 05:39 01/01/25 06:52 Brief Hx & Hospital Course: 54-year-old male with a known history of hypertension, diabetes type 2, known coronary artery disease status post PCI with seven stents, lung facial mass status post biopsy at [facility] in the past presented to the hospital with shortness of breaths has a chest pain eventually admitted. Patient has a known history of coronary artery disease status post multiple stents in the past. 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 Patient underwent coronary angiogram which shows normal coronaries with a no in his stent restenosis. Patient is cleared by Cardiology. Patient needs to follow up with the Pulmonary for outpatient pulmonary function tests. Patient has been as patient's understand, verbalized understanding and agreeable to plan. Condition at Discharge: Stable Final Diagnosis/Problems List 54-year-old male with a known history of hypertension, diabetes type 2, known coronary artery disease status post PCI with seven stents, lung facial mass status post biopsy at [facility] in the past presented to the hospital with shortness of breaths has a chest pain found to have 1. Chest pain rule out [facility] 2. Known coronary artery disease status post multiple stents 3. Hypertension 4. Diabetes mellitus type 2 5. History of lung fissure mass status post biopsy in the past Discharge Disposition: Home SNF Discharge Will this Physician continue t: No Discharge Instruct/Medications Diet: Cardiac 2g Na,low cholest Activity: No Restrictions, As Tolerated Follow Up/Referral: Follow up with the PCP in one week Follow up with the Cardiology in one week Follow up with the Dr. Lazcano, [employer] professor in one week for outpatient pulmonary function test as well as lung fissure mass to rule out malignancy. Medications: Resume home medications Discharge Statement: "Patient was advised to return to the ER or call 911 if any headaches, dizziness, shortness of breath, chest pain, abdominal pain, bleeding, fevers, or worsening of medical condition. Patient was counseled about treatment plan, medications, possible side effects, patientverbalized understanding. All questions were answered to the best of my ability. This discharge took greater then 30 minutes in planning, reviewing documentation, counseling the patient, and discussing with other team members." ASSESSMENT ASSESSMENT Assessment 54-year-old male with a known history of hypertension, diabetes type 2, known coronary artery disease status post PCI with seven stents, lung facial mass status post biopsy at [facility] in the past presented to the hospital with shortness of breaths has a chest pain found to have 1. Chest pain rule out [facility] 2. Known coronary artery disease status post multiple stents 3. Hypertension 4. Diabetes mellitus type 2 5. History of lung fissure mass status post biopsy in the past Date of Service: Jan 03, 2025 Billing Provider: EMMETT RODRIGUEZ MD Common Visit Codes: 54531-TUJ/OBS DISCH DAY >30min EMMETT RODRIGUEZ MD Jan 03, 2025 16:18
--- NOTE | 2025-01-03 19:28 | DVHPN2 ---
Progress Note - Dictate Date Seen: Jan 03, 2025 Medical Necessity Reason Pt with a Central, PICC or Fol: No vital signs Vital Sign Date Time Temp Pulse Resp B/P (MAP) Pulse Ox O2 Delivery O2 Flow Rate FiO2 01/03/25 17:11 36.6 66 19 96 01/03/25 17:08 134/85 (101) 01/03/25 08:00 Room Air* 0 21 Total Intake and Output 01/02/25 01/02/25 01/03/25 15:00 23:00 07:00 Intake Total 840 ml 1160 ml 480 ml Balance 840 ml 1160 ml 480 ml laboratory and microbiology Laboratory Tests 01/03/25 05:39 01/01/25 06:52 Test 01/03/25 05:39 Range/Units Serum Glucose 120 H 74-106 mg/dL Assessment/Plan Impression Nonspecific dyspnea Pulmonary nodules Chest pain Atelectasis Patient seen and examined Events Low oxygen requirements On room air No acute events Labs and imaging reviewed Patient previously underwent [facility] at [facility] earlier this year Report reviewed, bilateral pulmonary nodules reported 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
--- NOTE | 2025-01-03 21:50 | DVHPN2 ---
Progress Note - Dictate Date Seen: Jan 03, 2025 Medical Necessity Reason Pt with a Central, PICC or Fol: No Subjective Patient was seen and evaluated in follow up. Patient underwent left heart cath, [place] selective left and right coronary artery angiography. The previously deployed stent in the right coronary artery from the ostium all the way to the distal region, they all are widely open. There is no in-stent stenosis. Left main normal. The left artery also have a stent in the proximal region, also widely open. The circumflex and obtuse marginal artery also widely open without stenosis. Ejection fraction 65%. Now, the patient most likely has microvascular disease. Advised for conservative medical treatment. Telemetry reviewed. vital signs Vital Sign Date Time Temp Pulse Resp B/P (MAP) Pulse Ox O2 Delivery O2 Flow Rate FiO2 01/03/25 17:11 36.6 66 19 96 01/03/25 17:08 134/85 (101) 01/03/25 08:00 Room Air* 0 21 Total Intake and Output 01/02/25 01/02/25 01/03/25 15:00 23:00 07:00 Intake Total 840 ml 1160 ml 480 ml Balance 840 ml 1160 ml 480 ml laboratory and microbiology Laboratory Tests 01/03/25 05:39 01/01/25 06:52 Test 01/03/25 05:39 Range/Units Serum Glucose 120 H 74-106 mg/dL Problem List Acute chest pain. Rule out progressive CAD. s/p PTCA x 7 stents. Diabetes type 2. Assessment/Plan Continued all current supportive medical care. Morphine and [place]. Aspirin, Lipitor, Metoprolol, Brilinta. Additional plan as per the hospital course. Plan discussed with: Patient SHAHEED MORALES MD Jan 03, 2025 21:50
--- NOTE | 2025-01-04 14:18 | ECG ---
[facility] Test Date: 2024-12-31 Test Time: 12:20:00 Pat Name: LORE ZHANG Department: ER Room: 0246T B Gender: M [employer]: MELIDA : 1970 Requested By: JOCELIN COSBY Order Number: [id number] Reading MD: Homero Greer Measurements Intervals [place] Rate: 78 P: 67 AK: 150 QRS: 48 QRSD: 85 T: 61 QT: 370 QTc: 422 Interpretive Statements Sinus rhythm RSR' in V1 or V2, probably normal variant Electronically Signed On 01-04-2025 22:35:24 PDT by Homero Greer Please click the below link to view image of tracing.
== END 2025-01-03 17:50 | disposition home or self-care (01) | DRG 191 ==
LOC: ER 12:10 → OVERFLOW 23:24 → TELE-EAST 01-01 14:02
PROVIDERS: ADMIT Internal Medicine; ATTEND Internal Medicine
PROC: 4A023N7 Measurement of Cardiac Sampling and Pressure, Left Heart, Percutaneous Approach (ICD-10-PCS; principal; 2025-01-03)
PROC: B211YZZ Fluoroscopy of Multiple Coronary Arteries using Other Contrast (ICD-10-PCS; 2025-01-03)
PROC: B215YZZ Fluoroscopy of Left Heart using Other Contrast (ICD-10-PCS; 2025-01-03)
PROC: 03HY32Z Insertion of Monitoring Device into Upper Artery, Percutaneous Approach (ICD-10-PCS; 2025-01-03)
DX: I24.81 Acute coronary microvascular dysfunction (principal); E11.65 Type 2 diabetes mellitus with hyperglycemia; E78.5 Hyperlipidemia, unspecified; I10 Essential (primary) hypertension; I25.10 Atherosclerotic heart disease of native coronary artery without angina pectoris; J98.11 Atelectasis; Z95.5 Presence of coronary angioplasty implant and graft; Z79.02 Long term (current) use of antithrombotics/antiplatelets; Z83.3 Family history of diabetes mellitus; Z79.84 Long term (current) use of oral hypoglycemic drugs
CPT/HCPCS: 36415; 71045; 71250; 80053; 81001; 82962; 83880; 84484; 85025; 85610; 85730; 86850; 86900; 86901; 93005; 93306; 93458; 96374; 99152; G0378; J1815; J2250; Q9967